=== PATIENT | female | born 1950 | race Native Hawaiian/Other Pacific Islander ===

== ENCOUNTER 2018-03-21 16:23 | Inpatient (IN) | payer MEDICARE, BC ==
[2018-03-21 16:23] VITALS: BMI 40.2
--- NOTE | 2018-03-21 16:58 | C.PDOC ---
History Of Present Illness 67 years old female with PMHx of diabetes, HTN, and CAD is sent to ED by for admission and evaluation of shortness of breath associated with cough and chest tightness that began 2 weeks ago. Patient states she finished all her antibiotics. Denies fever or any other complaints. Time Seen by Provider: 03/21/18 16:43 Chief Complaint (Nursing): Shortness Of Breath History Per: Patient History/Exam Limitations: no limitations Onset/Duration Of Symptoms: Days Current Symptoms Are (Timing): Still Present Quality: Tightness Exacerbating Factor(s): Exertion Current Respiratory Medications: See Home Med List Associated Symptoms: denies: Fever Recent travel outside of the [place]: No Past Medical History Reviewed: Historical Data, Nursing Documentation, Vital Signs Vital Signs: Last Vital Signs Temp 97.8 F 03/21/18 16:33 Pulse 99 H 03/21/18 16:33 Resp 20 03/21/18 16:33 BP 141/86 03/21/18 16:33 Pulse Ox 96 03/21/18 16:33 - Medical History PMH: Arthritis, HTN, Hypercholesterolemia Family History: States: No Known Family Hx - Social History Hx Alcohol Use: No Hx Substance Use: No - Immunization History Hx Tetanus Toxoid Vaccination: No Hx Influenza Vaccination: Yes Hx Pneumococcal Vaccination: No Review Of Systems Except As Marked, All Systems Reviewed And Found Negative. Respiratory: Positive for: Cough, Shortness of Breath Physical Exam - Physical Exam Appears: Non-toxic, No Acute Distress Skin: Normal Color, Warm, Dry, No Rash Head: Atraumatic, Normacephalic Eye(s): bilateral: Normal Inspection, PERRL, EOMI Oral Mucosa: Moist Neck: Normal ROM, Supple Chest: Symmetrical, No Tenderness Cardiovascular: Rhythm Regular (Tachycardic ), No Murmur Respiratory: Normal Breath Sounds, No Rales, No Rhonchi, No Wheezing Gastrointestinal/Abdominal: Bowel Sounds (Active ), Soft, No Tenderness, No Guarding, No Rebound Extremity: Normal ROM Extremity: Bilateral: Atraumatic, Normal Color And Temperature, Normal ROM Pulses: Left Radial: Normal, Right Radial: Normal Neurological/Psych: Oriented x3, Normal Speech Gait: Steady ED Course And Treatment - Laboratory Results Result Diagrams: 03/21/18 17:12 03/21/18 17:12 O2 Sat by Pulse Oximetry: 96 (RA) Pulse Ox Interpretation: Normal - Other Rad CXR X-Ray: Interpreted by Me, Viewed By Me Interpretation: Cardiomegaly. Vascular congestion. No acute infiltrates. Medical Decision Making Medical Decision Making: Plan: * EKG * CXR * Blood work * O2 via nasal cannula EKG: * Normal sinus rhythm at 99 bpm * ST depressions V5-V6 * No ST Elevations 17:51: Spoke with Dr. Hairston which requested to admit to [facility] Spoke with Dr. Gonzalez which accepted patient Currently trying to reach and unable to leave a message on answering [employer]. Disposition Discussed With DrRonn: Edwin Hairston (admit to Dr Holt) Doctor Will See Patient In The: Hospital - Disposition Disposition: HOSPITALIZED Disposition Time: 17:56 Condition: STABLE Forms: [facility] (Qatari) - Clinical Impression Clinical Impression: Acute diastolic heart failure - Scribe Statement The provider has reviewed the documentation as recorded by the Scribe Aleah Fair All medical record entries made by the Scribe were at my direction and personally dictated by me. I have reviewed the chart and agree that the record accurately reflects my personal performance of the history, physical exam, [facility] decision making, and the department course for this patient. I have also personally directed, reviewed, and agree with the discharge instructions and disposition.
[2018-03-21 17:15] LABS: BASO % 0.4 % (0.0-2.0); EOS # 0.1 K/uL (0.0-0.7); EOS % 0.8 % (0.0-4.0); HEMOGLOBIN 13.2 g/dL (11.0-16.0); LYMPH # 1.6 K/uL (1.0-4.3); LYMPH % 21.3 % (20.0-40.0); MEAN CELL VOLUME 88.5 fL (81.0-99.0); MEAN CORPUSCULAR HGB CONC 31.7 g/dL (33.0-37.0); MEAN PLATELET VOLUME 8.2 fL (7.2-11.7); MONO # 0.6 K/uL (0.0-0.8); MONO % 7.7 % (0.0-10.0); NEUT # 5.3 K/uL (1.8-7.0); NEUT % 69.8 % (50.0-75.0); NRBC % 0.1 % (0.0-2.0); RBC 4.7 Mil/uL (3.80-5.20); RED CELL DISTRIBUTION WIDTH 13.9 % (11.5-14.5); WHITE BLOOD COUNT 7.6 K/uL (4.8-10.8)
[2018-03-21 17:29] LABS: INR 1.1; PROTHROMBIN TIME 11.8 SECONDS (9.7-12.2)
[2018-03-21 17:30] LABS: ALB/GLOB RATIO 1.5 (1.0-2.1); ALBUMIN 4.3 g/dL (3.5-5.0); ALT/SGPT 37 U/L (9-52); AST/SGOT 28 U/L (14-36); BLOOD UREA NITROGEN 20 mg/dL (7-17); CALCIUM 8.9 mg/dl (8.6-10.4); GFR NON-AFRICAN AMERICAN > 60
[2018-03-21 17:39] LABS: B-TYPE NATRIURETIC PEPTIDE 3320 pg/mL (0-900)
--- NOTE | 2018-03-21 22:10 | CP.PCM.CON ---
Past Patient History - Infectious Disease Hx of Infectious Diseases: None - Past Social History Smoking Status: Never Smoked - CARDIAC Hx Hypercholesterolemia: Yes Hx Hypertension: Yes - PULMONARY Hx Respiratory Disorders: No - NEUROLOGICAL Hx Neurological Disorder: No - HEENT Other/Comment: WEARS RX GLASSES - RENAL Hx Chronic Kidney Disease: No - ENDOCRINE/METABOLIC Hx Endocrine Disorders: Yes Hx Diabetes Mellitus Type 2: Yes - HEMATOLOGICAL/ONCOLOGICAL Hx Blood Disorders: Yes Other/Comment: GI BLEED - INTEGUMENTARY Hx Dermatological Problems: No - MUSCULOSKELETAL/RHEUMATOLOGICAL Hx Arthritis: Yes - GASTROINTESTINAL Hx Gastrointestinal Disorders: Yes Other/Comment: GI BLEED 12-28-14 - GENITOURINARY/GYNECOLOGICAL Hx Genitourinary Disorders: Yes Other/Comment: Newly diagnosed R breast cancer-SEPTEMBER 2014 - PSYCHIATRIC Hx Substance Use: No - SURGICAL HISTORY Hx Surgeries: Yes Other/Comment: LEFT KNEE ARTHROSCOPY,KELOID TO CHEST SEVERAL SX,BIOPSY RIGHT BREAST,LYMPNODES AND HAD PUNCH BX. - ANESTHESIA Hx Anesthesia: No Hx Anesthesia Reactions: No Meds Allergies/Adverse Reactions: Allergies Allergy/AdvReac Type Severity Reaction Status Date / Time GHAZALA Inhibitors Allergy RASH Verified 03/21/18 16:39 celecoxib [From Celebrex] Allergy RASH Verified 03/21/18 16:38 iodine Allergy RASH Verified 03/21/18 16:39 tape Allergy RASH Uncoded 03/21/18 16:39 - Medications Medications: Current Medications Aspirin (Ecotrin) 81 mg PO DAILY [facility] Enoxaparin Sodium (Lovenox) 40 mg SC DAILY [facility] Furosemide (Lasix) 20 mg IVP BID [facility] Gabapentin (Neurontin) 300 mg PO DAILY [facility] Losartan Potassium (Cozaar) 100 mg PO DAILY [facility] Metformin HCl (Glucophage) 850 mg PO BID [facility] Metoprolol Tartrate (Lopressor) 12.5 mg PO BID [facility] Pneumococcal Polyvalent Vaccine (Pneumovax 23 Vaccine) 0.5 ml IM .ONCE ONE Stop: 03/24/18 10:01 Rosuvastatin Calcium (Crestor) 10 mg PO HS [facility] Last Admin: 03/21/18 21:35 Dose: 10 mg Results - Vital Signs Recent Vital Signs: Last Vital Signs Temp 97.6 F 03/21/18 21:17 Pulse 96 H 03/21/18 21:17 Resp 20 03/21/18 21:17 BP 156/83 H 03/21/18 21:17 Pulse Ox 96 03/21/18 21:17 - Labs Result Diagrams: 03/21/18 17:12 03/21/18 17:12 Labs: Laboratory Results - last 24 hr 03/21/18 03/21/18 03/21/18 17:12 17:12 17:12 WBC 7.6 RBC 4.70 Hgb 13.2 Hct 41.6 MCV 88.5 MCH 28.0 MCHC 31.7 L RDW 13.9 Plt Count 246 MPV 8.2 Neut % (Auto) 69.8 Lymph % (Auto) 21.3 [place] % (Auto) 7.7 Eos % (Auto) 0.8 Baso % (Auto) 0.4 Neut # (Auto) 5.3 Lymph # (Auto) 1.6 [place] # (Auto) 0.6 Eos # (Auto) 0.1 Baso # (Auto) 0.0 PT 11.8 INR 1.1 APTT 27 Sodium 137 Potassium 3.7 Chloride 102 Carbon Dioxide 25 Anion Gap 14 BUN 20 H Creatinine 0.6 L Est GFR ( Amer) > 60 Est GFR (Non-Af Amer) > 60 Random Glucose 229 H Calcium 8.9 Total Bilirubin 1.1 AST 28 ALT 37 Alkaline Phosphatase 56 Troponin I < 0.0120 NT-Pro-B Natriuret Pep 3320 H Total Protein 7.2 Albumin 4.3 Globulin 2.9 Albumin/Globulin Ratio 1.5
[2018-03-22 00:35] LABS: CK-MB 0.88 ng/mL (0.0-3.38)
[2018-03-22 07:55] LABS: BLOOD UREA NITROGEN 19 mg/dL (7-17); CALCIUM 9.1 mg/dl (8.6-10.4); GFR NON-AFRICAN AMERICAN > 60; HDL CHOLESTEROL 48 mg/dL (30-70)
[2018-03-22 08:05] LABS: CK-MB 0.75 ng/mL (0.0-3.38)
[2018-03-22 08:12] LABS: LDL CHOLESTEROL 78 mg/dL (0-129)
--- NOTE | 2018-03-22 10:35 | RAD ---
Date of service: 03/21/2018 HISTORY: SOB COMPARISON: None available. FINDINGS: LUNGS: No active pulmonary disease. PLEURA: No significant pleural effusion identified, no pneumothorax apparent. CARDIOVASCULAR: No aortic atherosclerotic calcification present. Prominent cardiac silhouette identified. Borderline pulmonary vascular congestion. OSSEOUS STRUCTURES: No significant abnormalities. VISUALIZED UPPER ABDOMEN: Normal. OTHER FINDINGS: None. IMPRESSION: Prominent cardiac silhouette. Borderline pulmonary vascular congestion. No acute infiltrates bilaterally.
[2018-03-22] MEDS: Enoxaparin 40 mg Syringe SC SCH (11:44)
[2018-03-22] MEDS ORDERED: Glucagon Recombinant 1 mg Inj IM PRN (12:58)
[2018-03-22] MEDS ORDERED: Dextrose 50% SYRINGE Inj (50 ml) IV PRN (12:58)
--- NOTE | 2018-03-22 14:13 | CP.PCM.PN ---
<Kyleigh Turk - Last Filed: 03/22/18 17:17> Subjective - Date & Time of Evaluation Date of Evaluation: 03/22/18 Time of Evaluation: 08:00 - Subjective Subjective: Cardiology Progress Note for Dr. Hairston: Patient was seen and examined at bedside in the AM. Patient states she has been feeling short of breath for the past 2 weeks. She states walking from the parking lot to the hospital was a lot for her. She denies shortness of breath at rest. She sleeps with 2 pillows. She denies chest pain, palpitations, nausea, vomiting, diarrhea or constipation. Objective - Vital Signs/Intake and Output Vital Signs (last 24 hours): Temp Pulse Resp BP Pulse Ox 97.9 F 102 H 20 150/94 H 96 03/22/18 07:00 03/22/18 12:00 03/22/18 07:00 03/22/18 11:44 03/22/18 07:00 - Medications Medications: Current Medications Aspirin (Ecotrin) 81 mg PO DAILY [facility] 234 BEDS AT THE [facility] Last Admin: 03/22/18 11:44 Dose: 81 mg Dextrose (Dextrose 50% Inj) 0 ml IV STAT PRN; Protocol PRN Reason: Hypoglycemia Protocol Dextrose (Glutose 15) 0 gm PO ONCE PRN; Protocol PRN Reason: Hypoglycemia Protocol Enoxaparin Sodium (Lovenox) 40 mg SC DAILY [facility]S [facility]CLUDE 234 BEDS AT THE [facility] Last Admin: 03/22/18 11:44 Dose: 40 mg Furosemide (Lasix) 20 mg IVP BID [facility]S INCLUDE 234 BEDS AT THE [facility] Last Admin: 03/22/18 11:44 Dose: 20 mg Gabapentin (Neurontin) 300 mg PO DAILY [facility]CLUDE 234 BEDS AT THE [facility] Last Admin: 03/22/18 11:44 Dose: 300 mg Glucagon (Glucagen Diagnostic Kit) 0 mg IM STAT PRN; Protocol PRN Reason: Hypoglycemia Protocol Dextrose (Dextrose 5% In Water 1000 Ml) 1,000 mls @ 0 mls/hr IV .Q0M PRN; P rotocol PRN Reason: Hypoglycemia Protocol Influenza Virus Vaccine (Flucelvax Quad [id number] Syr) 60 mcg IM .ONCE ONE Stop: 03/23/18 10:01 Insulin Aspart (Novolog) 0 unit SC ACHS COUNTS INCLUDE 234 BEDS AT THE [facility]; Protocol Losartan Potassium (Cozaar) 100 mg PO DAILY [facility]S INCLUDE 234 BEDS AT THE [facility] Last Admin: 03/22/18 11:44 Dose: 100 mg Metformin HCl (Glucophage) 850 mg PO BID COUNTS INCLUDE 234 BEDS AT THE [facility] Last Admin: 03/22/18 11:45 Dose: 850 mg Metoprolol Tartrate (Lopressor) 12.5 mg PO BID COUNTS INCLUDE 234 BEDS AT THE [facility] Last Admin: 03/22/18 11:44 Dose: 12.5 mg Pneumococcal Polyvalent Vaccine (Pneumovax 23 Vaccine) 0.5 ml IM .ONCE ONE Stop: 03/24/18 10:01 Rosuvastatin Calcium (Crestor) 10 mg PO [facility] Last Admin: 03/21/18 21:35 Dose: 10 mg - Labs Labs: 03/21/18 17:12 03/22/18 07:27 PT 11.8 SECONDS (9.7-12.2) 03/21/18 17:12 INR 1.1 03/21/18 17:12 APTT 27 SECONDS (21-34) 03/21/18 17:12 - Constitutional Appears: No Acute Distress - Head Exam Head Exam: ATRAUMATIC, NORMAL INSPECTION - Eye Exam Eye Exam: EOMI, Normal appearance - ENT Exam ENT Exam: Mucous Membranes Moist - Respiratory Exam Respiratory Exam: Clear to Ausculation Bilateral, NORMAL BREATHING PATTERN - Cardiovascular Exam Cardiovascular Exam: REGULAR RHYTHM, +S1, +S2 - GI/Abdominal Exam GI & Abdominal Exam: Soft, Normal Bowel Sounds. absent: Tenderness - Extremities Exam Extremities Exam: Pedal Edema - Neurological Exam Neurological Exam: Alert, Awake, Oriented x3 - Psychiatric Exam Psychiatric exam: Normal Affect - Skin Skin Exam: Normal Color Assessment and Plan - Assessment and Plan (Free Text) Assessment: 67 year old female with past medical history of Diabetes, HTN and breast cancer remission presented to the ER for shortness of breath. Shortness of Breath secondary to Acute on Chronic CHF - Chest Xray: Prominent cardiac silhouette. Borderline pulmonary vascular congestion. No acute infiltrates bilaterally. - proBNP 3,320 - Trop Negative x3 - Total Cholesterol 118; LDL 78; HDL 48; TSH 4.11 - f/u ECHO: Reviewed by Dr. Hairston - EF 25% - Cardiac Cath 03/22/[address] Yovanny Turk PGY-2 <Edwin Hairston - Last Filed: 03/22/18 17:46> Objective - Vital Signs/Intake and Output Vital Signs (last 24 hours): Temp Pulse Resp BP Pulse Ox 98.1 F 92 H 20 147/89 96 03/22/18 16:00 03/22/18 16:00 03/22/18 16:00 03/22/18 16:00 03/22/18 16:00 - Medications Medications: Current Medications Aspirin (Ecotrin) 81 mg PO DAILY [facility]CLUDE 234 BEDS AT THE [facility] Last Admin: 03/22/18 11:44 Dose: 81 mg Dextrose (Dextrose 50% Inj) 0 ml IV STAT PRN; Protocol PRN Reason: Hypoglycemia Protocol Dextrose (Glutose 15) 0 gm PO ONCE PRN; Protocol PRN Reason: Hypoglycemia Protocol Enoxaparin Sodium (Lovenox) 40 mg SC DAILY [facility]S INCLUDE 234 BEDS AT THE [facility] Last Admin: 03/22/18 11:44 Dose: 40 mg Furosemide (Lasix) 20 mg IVP BID [facility]S INCLUDE 234 BEDS AT THE [facility] Last Admin: 03/22/18 17:11 Dose: Not Given Gabapentin (Neurontin) 300 mg PO DAILY [facility] INCLUDE 234 BEDS AT THE [facility] Last Admin: 03/22/18 11:44 Dose: 300 mg Glucagon (Glucagen Diagnostic Kit) 0 mg IM STAT PRN; Protocol PRN Reason: Hypoglycemia Protocol Dextrose (Dextrose 5% In Water 1000 Ml) 1,000 mls @ 0 mls/hr IV .Q0M PRN; Protocol PRN Reason: Hypoglycemia Protocol Influenza Virus Vaccine (Flucelvax Quad [id number] Syr) 60 mcg IM .ONCE ONE Stop: 03/23/18 10:01 Insulin Aspart (Novolog) 0 unit SC [facility]; Protocol Last Admin: 03/22/18 17:12 Dose: Not Given Losartan Potassium (Cozaar) 100 mg PO DAILY [facility]CLUDE 234 BEDS AT THE [facility] Last Admin: 03/22/18 11:44 Dose: 100 mg Metformin HCl (Glucophage) 850 mg PO BID [facility]S INCLUDE 234 BEDS AT THE [facility] Last Admin: 03/22/18 17:11 Dose: Not Given Metoprolol Tartrate (Lopressor) 12.5 mg PO BID [facility]S INCLUDE 234 BEDS AT THE [facility] Last Admin: 03/22/18 17:12 Dose: Not Given Pneumococcal Polyvalent Vaccine (Pneumovax 23 Vaccine) 0.5 ml IM .ONCE ONE Stop: 03/24/18 10:01 Potassium Chloride (K-Dur 20 Meq Er Tab) 40 meq PO DAILY [facility] INCLUDE 234 BEDS AT THE [facility] Last Admin: 03/22/18 16:14 Dose: 40 meq Rosuvastatin Calcium (Crestor) 10 mg PO HS [facility]S INCLUDE 234 BEDS AT THE [facility] Last Admin: 03/21/18 21:35 Dose: 10 mg - Labs Labs: 03/21/18 17:12 03/22/18 07:27 PT 11.8 SECONDS (9.7-12.2) 03/21/18 17:12 INR 1.1 03/21/18 17:12 APTT 27 SECONDS (21-34) 03/21/18 17:12 Assessment and Plan - Assessment and Plan (Free Text) Assessment: Patient s/p cath L Main: Patent LAD: Mid 95% stenosis L Cx: Patent High OM: Proximal 90% RCA: Dominant and patent EF: 20% Ischemic CMP Life Vest Impella assisted High risk PCI in open heart facility CHF management ASA 81 and Plavix 75, Statins
--- NOTE | 2018-03-22 14:52 | CP.PCM.CON ---
History of Present Illness - History of Present Illness History of Present Illness: This is a 67 year old woman with a past medical history of diabetes, HTN and CAD who is complaining of shortness of breath. She complains that it started about 2 weeks ago. She states the shortness of breath worsens with exertion and improves with rest. There is a non productive cough associated with some chest tightness whenever she becomes short of breath. She denies any recent travel or sick contacts. She denies any fevers, chills, wheezing, chest pain, n/v, dysuria. Past Medical Hx: Arthritis, HTN, DM, CAD, Breast Cancer Allergies: Iodine, GHAZALA inhibitors, sulfa Medications: Aspirin 81 mg, Lovenox 40mg daily, Neurontin 300 mg PO daily, Losartan 100 mg PO daily , Metformin 850 mg PO BID,Metoprolol, Surgical Hx: Left knee arthroscopy, right breast biopsy Family Hx: Mother at age 73 DM Social Hx: Denies tobacco, alcohol or drug use ROS: 10 point review of systems negative except otherwise stated in HPI Exam: General: AAOx3, no acute distress, HEENT: Atrauamatic, normocephalic, Heart: RRR, no murmurs, rubs or gallops Lungs:CTA b/l, no wheezing, rales or rhonchi Abdomen: soft, non distended, nontender Psych: normal affect, normal mood Extremities: bilateral lower extremity edema A&P 1. Shortness of Breath - CXR 03/21/18: prominent cardiac silhouette. borderline pulmonary vascular congestion, no acute infiltrates bilaterally - Continue Lasixs, fluid restrictions - Order Echo -Patient is afebrile at 97.9 F with a WBC count of 7.6 - O2 sat is 96% on room air - continue to monitor patients vitals Past Patient History - Infectious Disease Hx of Infectious Diseases: None - Past Social History Smoking Status: Never Smoked - CARDIAC Hx Hypercholesterolemia: Yes Hx Hypertension: Yes - PULMONARY Hx Respiratory Disorders: No - NEUROLOGICAL Hx Neurological Disorder: No - HEENT Other/Comment: WEARS RX GLASSES - RENAL Hx Chronic Kidney Disease: No - ENDOCRINE/METABOLIC Hx Endocrine Disorders: Yes Hx Diabetes Mellitus Type 2: Yes - HEMATOLOGICAL/ONCOLOGICAL Hx Blood Disorders: Yes Other/Comment: GI BLEED - INTEGUMENTARY Hx Dermatological Problems: No - MUSCULOSKELETAL/RHEUMATOLOGICAL Hx Arthritis: Yes - GASTROINTESTINAL Hx Gastrointestinal Disorders: Yes Other/Comment: GI BLEED 15 - GENITOURINARY/GYNECOLOGICAL Hx Genitourinary Disorders: Yes Other/Comment: Newly diagnosed R breast cancer-SEPTEMBER 2014 - PSYCHIATRIC Hx Substance Use: No - SURGICAL HISTORY Hx Surgeries: Yes Other/Comment: LEFT KNEE ARTHROSCOPY,KELOID TO CHEST SEVERAL SX,BIOPSY RIGHT BREAST,LYMPNODES AND HAD PUNCH BX. - ANESTHESIA Hx Anesthesia: No Hx Anesthesia Reactions: No Meds Allergies/Adverse Reactions: Allergies Allergy/AdvReac Type Severity Reaction Status Date / Time GHAZALA Inhibitors Allergy RASH Verified 03/21/18 16:39 celecoxib [From Celebrex] Allergy RASH Verified 03/21/18 16:38 iodine Allergy RASH Verified 03/21/18 16:39 tape Allergy RASH Uncoded 03/21/18 16:39 - Medications Medications: Current Medications Aspirin (Ecotrin) 81 mg PO DAILY [facility] Last Admin: 03/22/18 11:44 Dose: 81 mg Dextrose (Dextrose 50% Inj) 0 ml IV STAT PRN; Protocol PRN Reason: Hypoglycemia Protocol Dextrose (Glutose 15) 0 gm PO ONCE PRN; Protocol PRN Reason: Hypoglycemia Protocol Enoxaparin Sodium (Lovenox) 40 mg SC DAILY [facility] Last Admin: 03/22/18 11:44 Dose: 40 mg Furosemide (Lasix) 20 mg IVP BID [facility] Last Admin: 03/22/18 11:44 Dose: 20 mg Gabapentin (Neurontin) 300 mg PO DAILY [facility] Last Admin: 03/22/18 11:44 Dose: 300 mg Glucagon (Glucagen Diagnostic Kit) 0 mg IM STAT PRN; Protocol PRN Reason: Hypoglycemia Protocol Dextrose (Dextrose 5% In Water 1000 Ml) 1,000 mls @ 0 mls/hr IV .Q0M PRN; Protocol PRN Reason: Hypoglycemia Protocol Influenza Virus Vaccine (Flucelvax Quad [id number] Syr) 60 mcg IM .ONCE ONE Stop: 03/23/18 10:01 Insulin Aspart (Novolog) 0 unit SC [facility]; Protocol Losartan Potassium (Cozaar) 100 mg PO DAILY [facility] Last Admin: 03/22/18 11:44 Dose: 100 mg Metformin HCl (Glucophage) 850 mg PO BID [facility] Last Admin: 03/22/18 11:45 Dose: 850 mg Metoprolol Tartrate (Lopressor) 12.5 mg PO BID [facility] Last Admin: 03/22/18 11:44 Dose: 12.5 mg Pneumococcal Polyvalent Vaccine (Pneumovax 23 Vaccine) 0.5 ml IM .ONCE ONE Stop: 03/24/18 10:01 Rosuvastatin Calcium (Crestor) 10 mg PO HS [facility] Last Admin: 03/21/18 21:35 Dose: 10 mg Results - Vital Signs Recent Vital Signs: Last Vital Signs Temp 97.9 F 03/22/18 07:00 Pulse 102 H 03/22/18 12:00 Resp 20 03/22/18 07:00 BP 150/94 H 03/22/18 11:44 Pulse Ox 96 03/22/18 07:00 - Labs Result Diagrams: 03/21/18 17:12 03/22/18 07:27 Labs: Laboratory Results - last 24 hr 03/21/18 03/21/18 03/21/18 17:12 17:12 17:12 WBC 7.6 RBC 4.70 Hgb 13.2 Hct 41.6 MCV 88.5 MCH 28.0 MCHC 31.7 L RDW 13.9 Plt Count 246 MPV 8.2 Neut % (Auto) 69.8 Lymph % (Auto) 21.3 [place] % (Auto) 7.7 Eos % (Auto) 0.8 Baso % (Auto) 0.4 Neut # (Auto) 5.3 Lymph # (Auto) 1.6 [place] # (Auto) 0.6 Eos # (Auto) 0.1 Baso # (Auto) 0.0 PT 11.8 INR 1.1 APTT 27 Sodium 137 Potassium 3.7 Chloride 102 Carbon Dioxide 25 Anion Gap 14 BUN 20 H Creatinine 0.6 L Est GFR ( Amer) > 60 Est GFR (Non-Af Amer) > 60 POC Glucose (mg/dL) Random Glucose 229 H Calcium 8.9 Total Bilirubin 1.1 AST 28 ALT 37 Alkaline Phosphatase 56 Total Creatine Kinase CK-MB (Mass) Troponin I < 0.0120 NT-Pro-B Natriuret Pep 3320 H Total Protein 7.2 Albumin 4.3 Globulin 2.9 Albumin/Globulin Ratio 1.5 Triglycerides Cholesterol LDL Cholesterol Direct HDL Cholesterol TSH 3rd Generation 03/21/18 03/21/18 03/22/18 21:51 23:32 06:17 WBC RBC Hgb Hct MCV MCH MCHC RDW Plt Count MPV Neut % (Auto) Lymph % (Auto) [place] % (Auto) Eos % (Auto) Baso % (Auto) Neut # (Auto) Lymph # (Auto) [place] # (Auto) Eos # (Auto) Baso # (Auto) PT INR APTT Sodium Potassium Chloride Carbon Dioxide Anion Gap BUN Creatinine Est GFR ( Amer) Est GFR (Non-Af Amer) POC Glucose (mg/dL) 198 H 184 H Random Glucose Calcium Total Bilirubin AST ALT Alkaline Phosphatase Total Creatine Kinase 47 CK-MB (Mass) 0.88 Troponin I < 0.0120 NT-Pro-B Natriuret Pep Total Protein Albumin Globulin Albumin/Globulin Ratio Triglycerides Cholesterol LDL Cholesterol Direct HDL Cholesterol TSH 3rd Generation 03/22/18 03/22/18 07:27 11:28 WBC RBC Hgb Hct MCV MCH MCHC RDW Plt Count MPV Neut % (Auto) Lymph % (Auto) [place] % (Auto) Eos % (Auto) Baso % (Auto) Neut # (Auto) Lymph # (Auto) [place] # (Auto) Eos # (Auto) Baso # (Auto) PT INR APTT Sodium 137 Potassium 3.4 L Chloride 99 Carbon Dioxide 29 Anion Gap 12 BUN 19 H Creatinine 0.7 Est GFR ( Amer) > 60 Est GFR (Non-Af Amer) > 60 POC Glucose (mg/dL) 282 H Random Glucose 192 H Calcium 9.1 Total Bilirubin AST ALT Alkaline Phosphatase Total Creatine Kinase 45 CK-MB (Mass) 0.75 Troponin I < 0.0120 NT-Pro-B Natriuret Pep Total Protein Albumin Globulin Albumin/Globulin Ratio Triglycerides 118 Cholesterol 137 LDL Cholesterol Direct 78 HDL Cholesterol 48 TSH 3rd Generation 4.11
[2018-03-22] MEDS ORDERED: Potassium Chloride 20 mEq ER Tab PO SCH (16:15)
[2018-03-22] MEDS ORDERED: Iodixanol 320 MG/ML 200 ML BOTTLE IV ONE (16:46)
[2018-03-22] MEDS ORDERED: Midazolam 2 MG/2 ML VIAL ONE (16:58)
[2018-03-22] MEDS: (Novolog) Insulin Aspart, Recombinant 100 u/ml 10 ml vial SC SCH ×2 (17:12→21:16)
[2018-03-22] MEDS ORDERED: Labetalol 5mg/ml (4ml) ONE (17:28)
--- NOTE | 2018-03-22 19:56 | CARD ---
APPROVED REPORT Date of service: 03/22/2018 EXAM: Two-dimensional and M-mode echocardiogram with Doppler and color Doppler. Other Information Quality : Good[employer] : INDICATION Dyspnea 2D DIMENSIONS IVSd0.7 (0.7-1.1cm)LVDd5.9 (3.9-5.9cm) PWd0.8 (0.7-1.1cm)LA Roirck47 (18-58mL) LVDs5.5 (2.5-4.0cm)FS (%) 8.2 % LVEF (%)33.0 (>50%)LVEF (Frazier's)35.09 % M-Mode DIMENSIONS Left Atrium (MM)4.06 (2.5-4.0cm)IVSd1.07 (0.7-1.1cm) Aortic Root3.37 (2.2-3.7cm)LVDd5.76 (4.0-5.6cm) Aortic Cusp Exc.1.96 (1.5-2.0cm)PWd1.13 (0.7-1.1cm) FS (%) 16 %LVDs4.85 (2.0-3.8cm) LVEF (%)33 (>50%) Mitral Valve MV E Rzfyesmp985.0cm/sMV A Bovrrykj39.0cm/sE/A ratio1.2 TDI Lateral E' Peak V5.25cm/sMedial E' Peak V4.29cm/sE/Lateral E'20.8 E/Medial E'25.4 Tricuspid Valve TR Peak [id number]/sTR Peak Gr.[id number] LEFT VENTRICLE The Left Ventricle is borderline dilated. There is normal left ventricular wall thickness. Left ventricle systolic function is severely impaired. The Ejection Fraction is 25-30%. There is global hypokinesis of the left ventricle. Transmitral Doppler flow pattern is Grade II-pseudonormal filling dynamics. There is no ventricular septal defect visualized. RIGHT VENTRICLE The right ventricle is normal size. The right ventricular systolic function is normal. ATRIA The left atrium is mildly dilated. The right atrium size is normal. AORTIC VALVE The aortic valve is mildly sclerotic. The aortic valve is tri-cuspid. There is trace aortic regurgitation. There is no aortic valvular stenosis. MITRAL VALVE Mitral annular calcification is mild to moderate. There is no evidence of mitral valve prolapse. Mitral regurgitation is mild to moderate. TRICUSPID VALVE The tricuspid valve is normal in structure. There is trace tricuspid regurgitation. Right ventricular systolic pressure is estimated at 30-40 mmHg. There is mild pulmonary hypertension. PULMONIC VALVE The pulmonary valve is normal in structure. There is trace pulmonic valvular regurgitation. GREAT VESSELS The aortic root is normal in size. The ascending aorta is Mildly dilated. 3.8 cm The IVC is dilated. PERICARDIAL EFFUSION There is no pericardial effusion. <Conclusion> The Left Ventricle is borderline dilated. Left ventricle systolic function is severely impaired. The Ejection Fraction is 25-30%. Transmitral Doppler flow pattern is Grade II-pseudonormal filling dynamics. There is trace aortic regurgitation. Mitral regurgitation is mild to moderate. There is mild pulmonary hypertension.
--- NOTE | 2018-03-22 20:54 | CARD ---
APPROVED REPORT Date of service: 03/21/2018 EKG Measurement Heart [id number] <Conclusion> Normal sinus rhythm Possible Left atrial enlargement Nonspecific ST and T wave abnormality Abnormal ECG
--- NOTE | 2018-03-22 21:28 | CP.PCM.HP ---
Present on Admission - Present on Admission Any Indicators Present on Admission: No Past Patient History - Infectious Disease Hx of Infectious Diseases: None - Past Social History Smoking Status: Never Smoked - CARDIAC Hx Hypercholesterolemia: Yes Hx Hypertension: Yes - PULMONARY Hx Respiratory Disorders: No - NEUROLOGICAL Hx Neurological Disorder: No - HEENT Other/Comment: WEARS RX GLASSES - RENAL Hx Chronic Kidney Disease: No - ENDOCRINE/METABOLIC Hx Endocrine Disorders: Yes Hx Diabetes Mellitus Type 2: Yes - HEMATOLOGICAL/ONCOLOGICAL Hx Blood Disorders: Yes Other/Comment: GI BLEED - INTEGUMENTARY Hx Dermatological Problems: No - MUSCULOSKELETAL/RHEUMATOLOGICAL Hx Arthritis: Yes - GASTROINTESTINAL Hx Gastrointestinal Disorders: Yes Other/Comment: GI BLEED 12-28-14 - GENITOURINARY/GYNECOLOGICAL Hx Genitourinary Disorders: Yes Other/Comment: Newly diagnosed R breast cancer-SEPTEMBER 2014 - PSYCHIATRIC Hx Substance Use: No - SURGICAL HISTORY Hx Surgeries: Yes Other/Comment: LEFT KNEE ARTHROSCOPY,KELOID TO CHEST SEVERAL SX,BIOPSY RIGHT BREAST,LYMPNODES AND HAD PUNCH BX. - ANESTHESIA Hx Anesthesia: No Hx Anesthesia Reactions: No Meds Allergies/Adverse Reactions: Allergies Allergy/AdvReac Type Severity Reaction Status Date / Time GHAZALA Inhibitors Allergy RASH Verified 03/21/18 16:39 celecoxib [From Celebrex] Allergy RASH Verified 03/21/18 16:38 iodine Allergy RASH Verified 03/21/18 16:39 tape Allergy RASH Uncoded 03/21/18 16:39 Results - Vital Signs Recent Vital Signs: Last Vital Signs Temp 97.7 F 03/22/18 19:28 Pulse 89 03/22/18 19:28 Resp 18 03/22/18 19:28 BP 133/83 03/22/18 19:28 Pulse Ox 95 03/22/18 19:28 - Labs Result Diagrams: 03/21/18 17:12 03/22/18 07:27 Labs: Laboratory Results - last 24 hr 03/21/18 03/21/18 03/22/18 21:51 23:32 06:17 Sodium Potassium Chloride Carbon Dioxide Anion Gap BUN Creatinine Est GFR ( Amer) Est GFR (Non-Af Amer) POC Glucose (mg/dL) 198 H 184 H Random Glucose Calcium Total Creatine Kinase 47 CK-MB (Mass) 0.88 Troponin I < 0.0120 Triglycerides Cholesterol LDL Cholesterol Direct HDL Cholesterol TSH 3rd Generation 03/22/18 03/22/1819 07:27 11:28 18:50 Sodium 137 Potassium 3.4 L Chloride 99 Carbon Dioxide 29 Anion Gap 12 BUN 19 H Creatinine 0.7 Est GFR ( Amer) > 60 Est GFR (Non-Af Amer) > 60 POC Glucose (mg/dL) 282 H 267 H Random Glucose 192 H Calcium 9.1 Total Creatine Kinase 45 CK-MB (Mass) 0.75 Troponin I < 0.0120 Triglycerides 118 Cholesterol 137 LDL Cholesterol Direct 78 HDL Cholesterol 48 TSH 3rd Generation 4.11 03/22/18 21:15 Sodium Potassium Chloride Carbon Dioxide Anion Gap BUN Creatinine Est GFR ( Amer) Est GFR (Non-Af Amer) POC Glucose (mg/dL) 263 H Random Glucose Calcium Total Creatine Kinase CK-MB (Mass) Troponin I Triglycerides Cholesterol LDL Cholesterol Direct HDL Cholesterol TSH 3rd Generation
--- NOTE | 2018-03-23 01:11 | HP ---
CHIEF COMPLIANT: Dyspnea x2 weeks. HISTORY OF PRESENT ILLNESS: This is 67-year-old [place] female with history of diabetes, hypertension, hyperlipidemia, coronary artery disease. She had developed shortness of breath about 2 weeks ago. According to her, shortness of breath is exertion and is improved with that. She had some nonproductive cough. According to her, in the very beginning she had white sputum production, but now it is nonproductive. She gets short of breath with exertion, beyond 15 to 20 steps. The patient denies any history of hemoptysis. She denies any history of earache, nausea, vomiting, diarrhea. She has dry cough. She denies any sputum. She denies any abdominal pain. She had dyspepsia. She denies any nausea, vomiting, or diarrhea. She denies any polyuria, polydipsia, polyphagia. She denies any hematuria or pyuria. She denies any history of trauma, fall, loss of consciousness. There is no history of seizure like activity. The patient denies any vomiting. She denies drinking alcohol. She denies smoking. She denies any other acute symptomatology. PAST MEDICAL HISTORY: Diabetes, hypertension, hyperlipidemia, osteoarthritis, breast cancer, and coronary artery disease. She has breast cancer and she is in remission. She is being followed up by Dr. Preston in [place]. ALLERGIES: THE PATIENT IS ALLERGIC TO IODINE, GHAZALA INHIBITOR, AND SULFA. CURRENT MEDICATIONS: She is on aspirin, gabapentin 300 mg daily, Cozaar 100 mg daily, metformin 850 mg b.i.d. and metoprolol. SURGICAL HISTORY: She had left knee arthroplasty and right breast biopsy. FAMILY HISTORY: Mother at the age of 73 and diabetes. SOCIAL HISTORY: She denies smoking, drinking, or drugs. REVIEW OF SYSTEMS: Negative for any involuntary movements of arms and legs. The patient denies any diarrhea. She denies any skin rash, itchy eyes, itchy nose, or sneezing. PHYSICAL EXAMINATION: GENERAL: An elderly female, moderately obese. VITAL SIGNS: Blood pressure 133/83, pulse 89, respiratory rate 18, and temperature 97.7. SKIN: No rashes. No bruises. No purpura. No petechiae. No ecchymosis. HEENT: Atraumatic and normocephalic. Negative pallor. Negative icterus. Extraocular movements are intact. NECK: Supple. No JVD. No lymph node. No thyromegaly. No carotid bruits. CHEST WALL: Bilateral symmetrical expansion. No tenderness. No deformity. LUNGS: Bilaterally clear. No rales. No rhonchi. CARDIOVASCULAR SYSTEM: S1 and S2, plus S3 positive. 2/6 ejection systolic murmur at the apex. ABDOMEN: Soft and nontender. Bowel sounds are positive. RECTAL: Negative blood. EXTREMITIES: No clubbing, cyanosis, or edema. CENTRAL NERVOUS SYSTEM: Awake, alert, and oriented x3. Cranial nerves II through XII are normal. Power 5/5 x4. Plantars are downgoing. ASSESSMENT: 1. Dyspnea, etiology is it could be an atypical pneumonia versus coronary artery disease versus congestive heart failure. Her symptoms are subtle and it is unlikely to be pulmonary thromboembolic disease. 2. History of coronary artery disease, rule out progression. 3. Hypertension. 4. Type 2 diabetes. 5. History of breast cancer, status post chemoradiation. PLAN: Admit. Detailed orders are written. Seen and examined. I discussed the case with Dr. Hairston, who did cardiac catheterization and the patient's cardiac catheterization showed two-vessel disease with LV ejection fraction of 20% and she is not a candidate for CABG and she will need angioplasty, and she was transferred to [facility] for transfer. The patient will be followed up closely. Fantasma Holt MD
--- NOTE | 2018-03-23 01:57 | CARDCATH ---
PROCEDURE DATE: 03/22/2018 PROCEDURES: 1. Left heart catheterization. 2. Coronary angiogram. CLINICAL INDICATIONS: 1. Dyspnea. 2. Acute systolic congestive heart failure. 3. Coronary artery disease. 4. Hypertension. 5. Hyperlipidemia. 6. Obesity. REFERRING PHYSICIAN: Vikas Gill MD PERFORMING PHYSICIAN: Edwin Hairston MD DESCRIPTION OF PROCEDURE: After informed consent, the patient was prepped and draped in the usual sterile fashion. A 2% lidocaine was given in the right groin for local anesthesia. Using micropuncture technique, 6-Maori sheath was introduced into right common femoral artery. A JL4 6-Maori diagnostic catheter was engaged into left main coronary artery. Contrast injected, and left coronary angiogram was done. Then, the catheter was exchanged to JR4 6-Maori diagnostic catheter. The catheter was inserted into left ventricle across the aortic valve. LVEDP measured. Contrast injected, and LV angiogram was done. Then, the catheter was pulled back across the aortic valve. Gradient across the aortic valve was measured. Then, the same catheter engaged into the right coronary artery. Contrast injected, and right coronary angiogram was done. The patient tolerated the procedure well. Postprocedure, Mynx closure device deployed with excellent hemostasis. Radiological supervision and radiological interpretation of the coronary imaging was done. FINDINGS: 1. Left main coronary artery is patent. 2. LAD has mid 95% concentric stenosis. Diagonal branches are patent. 3. Left circumflex coronary artery is patent. 4. High obtuse marginal one branch has 95% proximal stenosis. 5. Right coronary artery is dominant and patent. 6. Dilated ischemic left ventricle. Estimated ejection fraction is 20%. EDP is 36. No gradient across the aortic valve. IMPRESSION: 1. Severe two-vessel coronary artery disease. 2. Dilated ischemic cardiomyopathy. Ejection fraction is 20%. RECOMMENDATIONS: The patient is not an ideal candidate for open heart surgery as the patient had breast CA and chemotherapy in the past. I recommend high risk coronary intervention with Impella device assist. Edwin Hairston MD
[2018-03-23 02:45] VITALS: RESP 20
[2018-03-23 07:54] LABS: HEMOGLOBIN 12.4 g/dL (11.0-16.0); MEAN CELL VOLUME 87.9 fL (81.0-99.0); MEAN CORPUSCULAR HEMOGLOBIN 29.2 pg (27.0-31.0); MEAN CORPUSCULAR HGB CONC 33.2 g/dL (33.0-37.0); MEAN PLATELET VOLUME 9.1 fL (7.2-11.7); RBC 4.27 Mil/uL (3.80-5.20); RED CELL DISTRIBUTION WIDTH 14.2 % (11.5-14.5); WHITE BLOOD COUNT 8.3 K/uL (4.8-10.8)
[2018-03-23] MEDS: (Novolog) Insulin Aspart, Recombinant 100 u/ml 10 ml vial SC SCH ×4 (08:06→21:29)
[2018-03-23 08:07] LABS: BLOOD UREA NITROGEN 24 mg/dL (7-17); GFR NON-AFRICAN AMERICAN > 60
[2018-03-23] MEDS ORDERED: Potassium Chloride 20 mEq ER Tab PO SCH (09:02)
--- NOTE | 2018-03-23 09:40 | CP.PCM.PN ---
<Kyleigh Turk - Last Filed: 03/23/18 18:57> Subjective - Date & Time of Evaluation Date of Evaluation: 03/23/18 Time of Evaluation: 08:00 - Subjective Subjective: Cardiology Progress Note for Dr. Hairston: Patient was seen and examined at bedside in the AM. Patient states she feels well today especially now that her cath procedure has been completed. She denies chest pain, palpitations, shortness of breath at rest, nausea, vomiting, diarrhea or constipation. Objective - Vital Signs/Intake and Output Vital Signs (last 24 hours): Temp Pulse Resp BP Pulse Ox 97.9 F 94 H 20 128/75 98 03/23/18 07:00 03/23/18 08:00 03/23/18 07:00 03/23/18 07:00 03/23/18 07:00 - Medications Medications: Current Medications Aspirin (Ecotrin) 81 mg PO DAILY [facility] Last Admin: 03/22/18 11:44 Dose: 81 mg Clopidogrel Bisulfate (Plavix) 75 mg PO DAILY [facility] Dextrose (Dextrose 50% Inj) 0 ml IV STAT PRN; Protocol PRN Reason: Hypoglycemia Protocol Dextrose (Glutose 15) 0 gm PO ONCE PRN; Protocol PRN Reason: Hypoglycemia Protocol Enoxaparin Sodium (Lovenox) 40 mg SC DAILY [facility] Last Admin: 03/22/18 11:44 Dose: 40 mg Furosemide (Lasix) 20 mg IVP BID [facility] Last Admin: 03/22/18 17:11 Dose: Not Given Gabapentin (Neurontin) 300 mg PO DAILY [facility] Last Admin: 03/22/18 11:44 Dose: 300 mg Glucagon (Glucagen Diagnostic Kit) 0 mg IM STAT PRN; Protocol PRN Reason: Hypoglycemia Protocol Dextrose (Dextrose 5% In Water 1000 Ml) 1,000 mls @ 0 mls/hr IV .Q0M PRN; Protocol PRN Reason: Hypoglycemia Protocol Influenza Virus Vaccine (Flucelvax Quad [id number] Syr) 60 mcg IM .ONCE ONE Stop: 03/23/18 10:01 Insulin Aspart (Novolog) 0 unit SC [facility]; Protocol Last Admin: 03/23/18 08:06 Dose: 6 units Losartan Potassium (Cozaar) 100 mg PO DAILY [facility] Last Admin: 03/22/18 11:44 Dose: 100 mg Metformin HCl (Glucophage) 850 mg PO BID [facility] Last Admin: 03/22/18 17:11 Dose: Not Given Metoprolol Tartrate (Lopressor) 12.5 mg PO BID [facility] Last Admin: 03/22/18 17:12 Dose: Not Given Pneumococcal Polyvalent Vaccine (Pneumovax 23 Vaccine) 0.5 ml IM .ONCE ONE Stop: 03/24/18 10:01 Potassium Chloride (K-Dur 20 Meq Er Tab) 20 meq PO DAILY [facility] Rosuvastatin Calcium (Crestor) 10 mg PO HS [facility] Last Admin: 03/22/18 21:17 Dose: 10 mg - Labs Labs: 03/23/18 07:43 03/23/18 07:43 PT 11.8 SECONDS (9.7-12.2) 03/21/18 17:12 INR 1.1 03/21/18 17:12 APTT 27 SECONDS (21-34) 03/21/18 17:12 - Constitutional Appears: No Acute Distress - Head Exam Head Exam: ATRAUMATIC, NORMAL INSPECTION - Eye Exam Eye Exam: EOMI, Normal appearance - ENT Exam ENT Exam: Mucous Membranes Moist - Respiratory Exam Respiratory Exam: Clear to Ausculation Bilateral, NORMAL BREATHING PATTERN - Cardiovascular Exam Cardiovascular Exam: REGULAR RHYTHM, +S1, +S2 - GI/Abdominal Exam GI & Abdominal Exam: Soft, Normal Bowel Sounds. absent: Tenderness - Extremities Exam Extremities Exam: Pedal Edema - Neurological Exam Neurological Exam: Alert, Awake, Oriented x3 - Psychiatric Exam Psychiatric exam: Normal Affect - Skin Skin Exam: Normal Color Additional comments: right groin dressing - dressing was removed - mild bruising - c/d/i Assessment and Plan - Assessment and Plan (Free Text) Assessment: 67 year old female with past medical history of Diabetes, HTN and breast cancer remission presented to the ER for shortness of breath. Shortness of Breath secondary to Acute on Chronic CHF - Chest Xray: Prominent cardiac silhouette. Borderline pulmonary vascular congestion. No acute infiltrates bilaterally. - proBNP 3,320 - Trop Negative x3 - Total Cholesterol 118; LDL 78; HDL 48; TSH 4.11 - ECHO (03/22/18): EF 25-30%; left ventricle is borderline dilated. Left ventricle systolic function is severely impaired. Trace aortic regurgitation; mitral regurgitation is mild to moderate. There is mild pulmonary hypertension. - s/p Cardiac Cath 03/22/18: * L Main: Patent * LAD: Mid 95% stenosis * L Cx: Patent * High OM: Proximal 90% * RCA: Dominant and patent * EF: 20% - Medications: * Plavix 75mg po daily * Lasix 20mg IV daily * Cozaar 100mg po daily * Metoprolol Tartrate 12.5mg po bid * KDur 20meq po daily * Crestor 10mg HS - Patient will need Life Vest prior to discharge Patient to be transferred to [facility] 03/24/18 for Impella assisted High risk PCI Case discussed with Dr. Yovanny Turk PGY-2 <Edwin Hairston - Last Filed: 03/23/18 22:49> Objective - Vital Signs/Intake and Output Vital Signs (last 24 hours): Temp Pulse Resp BP Pulse Ox 98.0 F 95 H 20 135/88 97 03/23/18 16:00 03/23/18 16:00 03/23/18 16:00 03/23/18 17:53 03/23/18 16:00 Intake and Output: 03/23/18 03/24/18 18:59 06:59 Intake Total 400 Balance 400 - Medications Medications: Current Medications Aspirin (Ecotrin) 81 mg PO DAILY [facility] Last Admin: 03/23/18 09:44 Dose: 81 mg Clopidogrel Bisulfate (Plavix) 75 mg PO DAILY [facility] Last Admin: 03/23/18 09:44 Dose: 75 mg Dextrose (Dextrose 50% Inj) 0 ml IV STAT PRN; Protocol PRN Reason: Hypoglycemia Protocol Dextrose (Glutose 15) 0 gm PO ONCE PRN; Protocol PRN Reason: Hypoglycemia Protocol Enoxaparin Sodium (Lovenox) 40 mg SC DAILY [facility] Last Admin: 03/23/18 09:44 Dose: 40 mg Furosemide (Lasix) 20 mg IVP BID [facility] Last Admin: 03/23/18 17:53 Dose: 20 mg Gabapentin (Neurontin) 300 mg PO DAILY [facility] Last Admin: 03/23/18 09:44 Dose: 300 mg Glucagon (Glucagen Diagnostic Kit) 0 mg IM STAT PRN; Protocol PRN Reason: Hypoglycemia Protocol Dextrose (Dextrose 5% In Water 1000 Ml) 1,000 mls @ 0 mls/hr IV .Q0M PRN; Protocol PRN Reason: Hypoglycemia Protocol Insulin Aspart (Novolog) 0 unit SC [facility]; Protocol Last Admin: 03/23/18 21:29 Dose: Not Given Losartan Potassium (Cozaar) 100 mg PO DAILY [facility] Last Admin: 03/23/18 09:44 Dose: 100 mg Metformin HCl (Glucophage) 850 mg PO BID [facility] Last Admin: 03/23/18 17:52 Dose: 850 mg Metoprolol Tartrate (Lopressor) 12.5 mg PO BID [facility] Last Admin: 03/23/18 17:52 Dose: 12.5 mg Pneumococcal Polyvalent Vaccine (Pneumovax 23 Vaccine) 0.5 ml IM .ONCE ONE Stop: 03/24/18 10:01 Potassium Chloride (K-Dur 20 Meq Er Tab) 20 meq PO DAILY [facility] Last Admin: 03/23/18 09:44 Dose: 20 meq Rosuvastatin Calcium (Crestor) 10 mg PO HS [facility] Last Admin: 03/23/18 21:36 Dose: 10 mg - Labs Labs: 03/23/18 07:43 03/23/18 07:43 PT 11.8 SECONDS (9.7-12.2) 03/21/18 17:12 INR 1.1 03/21/18 17:12 APTT 27 SECONDS (21-34) 03/21/18 17:12 Assessment and Plan - Assessment and Plan (Free Text) Assessment: Patient seen and evaluated personally by me. Plan of care d/w the medical transcription editor and as documented
[2018-03-23] MEDS: Enoxaparin 40 mg Syringe SC SCH (09:44)
[2018-03-23] MEDS ORDERED: Influenza Vaccine 60 mcg/0.5 mL SYR (4YR UP) IM ONE (10:00)
--- NOTE | 2018-03-23 11:46 | CARD ---
APPROVED REPORT Date of service: 03/22/2018 EKG Measurement Heart [id number] <Conclusion> Normal sinus rhythm ST & T wave abnormality, consider inferior ischemia Prolonged QT Abnormal ECG
--- NOTE | 2018-03-23 17:06 | CP.PCM.PN ---
Subjective - Date & Time of Evaluation Date of Evaluation: 03/23/18 Time of Evaluation: 13:00 - Subjective Subjective: Patient was seen and examined at bedside this morning. She had a cardiac cath performed yesterday which went well. She is resting comfortably and in no acute distress. She states she is feeling better compared to yesterday. she slept well overnight. She denies fevers, chills, chest pain, shortness of breath, hemoptysis, n/v. Exam: General: no acute distres, AAOx3 Heart: RRR, no mumurs rubs or gallops Lungs: CTA b/l, no wheezing rales or rhonchi heard extremities: 2+ b/L pitting edema A&P 1. Shortness of Breath sec to CHF - CXR 03/21/18: prominent cardiac silhouette. borderline pulmonary vascular congestion, no acute infiltrates bilaterally - Continue Lasixs, fluid restrictions -Patient is afebrile at 97.9 F with a WBC count of 8.3 - O2 sat is 98% on room air - S/P Cardiac cath [place] [facility] [place] Impala Objective - Vital Signs/Intake and Output Vital Signs (last 24 hours): Temp Pulse Resp BP Pulse Ox 98.0 F 95 H 20 129/78 97 03/23/18 16:00 03/23/18 16:00 03/23/18 16:00 03/23/18 16:00 03/23/18 16:00 Intake and Output: 03/23/18 03/23/18 06:59 18:59 Intake Total 400 Balance 400 - Medications Medications: Current Medications Aspirin (Ecotrin) 81 mg PO DAILY [facility] Last Admin: 03/23/18 09:44 Dose: 81 mg Clopidogrel Bisulfate (Plavix) 75 mg PO DAILY [facility] Last Admin: 03/23/18 09:44 Dose: 75 mg Dextrose (Dextrose 50% Inj) 0 ml IV STAT PRN; Protocol PRN Reason: Hypoglycemia Protocol Dextrose (Glutose 15) 0 gm PO ONCE PRN; Protocol PRN Reason: Hypoglycemia Protocol Enoxaparin Sodium (Lovenox) 40 mg SC DAILY [facility] Last Admin: 03/23/18 09:44 Dose: 40 mg Furosemide (Lasix) 20 mg IVP BID [facility] Last Admin: 03/23/18 09:43 Dose: 20 mg Gabapentin (Neurontin) 300 mg PO DAILY [facility] Last Admin: 03/23/18 09:44 Dose: 300 mg Glucagon (Glucagen Diagnostic Kit) 0 mg IM STAT PRN; Protocol PRN Reason: Hypoglycemia Protocol Dextrose (Dextrose 5% In Water 1000 Ml) 1,000 mls @ 0 mls/hr IV .Q0M PRN; Protocol PRN Reason: Hypoglycemia Protocol Insulin Aspart (Novolog) 0 unit SC [facility]S [facility]; Protocol Last Admin: 03/23/18 11:47 Dose: 12 units Losartan Potassium (Cozaar) 100 mg PO DAILY [facility] Last Admin: 03/23/18 09:44 Dose: 100 mg Metformin HCl (Glucophage) 850 mg PO BID [facility] Last Admin: 03/23/18 09:44 Dose: 850 mg Metoprolol Tartrate (Lopressor) 12.5 mg PO BID [facility] Last Admin: 03/23/18 09:44 Dose: 12.5 mg Pneumococcal Polyvalent Vaccine (Pneumovax 23 Vaccine) 0.5 ml IM .ONCE ONE Stop: 03/24/18 10:01 Potassium Chloride (K-Dur 20 Meq Er Tab) 20 meq PO DAILY [facility] Last Admin: 03/23/18 09:44 Dose: 20 meq Rosuvastatin Calcium (Crestor) 10 mg PO HS [facility] Last Admin: 03/22/18 21:17 Dose: 10 mg - Labs Labs: 03/23/18 07:43 03/23/18 07:43 PT 11.8 SECONDS (9.7-12.2) 03/21/18 17:12 INR 1.1 03/21/18 17:12 APTT 27 SECONDS (21-34) 03/21/18 17:12
[2018-03-24 07:30] VITALS: BP 145/80; PULSE 96; TEMP 98; O2SAT 98
[2018-03-24] MEDS ORDERED: Pneumococcal 23-Valent Vaccine IM ONE (10:00)
--- NOTE | 2018-03-24 22:45 | CP.PCM.DIS ---
Provider - Provider Date of Admission: 03/23/18 10:35 Attending physician: Fantasma Holt MD Consults: 03/21/18 20:06 Cardiology Consult Routine Comment: acs Consulting Provider: Edwin Hairston Consulting Physician: Edwin Hairston Reason for Consult: acs 03/22/18 09:53 Pulmonology Consult Routine Comment: Consulting Provider: Chalo Mcdaniels Consulting Physician: Chalo Mcdaniels Reason for Consult: dyspnea Time Spent in preparation of Discharge (in minutes): 30 Hospital Course - Lab Results Lab Results: Most Recent Lab Values WBC 8.3 K/uL (4.8-10.8) 03/23/18 07:43 RBC 4.27 Mil/uL (3.80-5.20) 03/23/18 07:43 Hgb 12.4 g/dL (11.0-16.0) 03/23/18 07:43 Hct 37.5 % (34.0-47.0) 03/23/18 07:43 MCV 87.9 fL (81.0-99.0) 03/23/18 07:43 MCH 29.2 pg (27.0-31.0) 03/23/18 07:43 MCHC 33.2 g/dL (33.0-37.0) 03/23/18 07:43 RDW 14.2 % (11.5-14.5) 03/23/18 07:43 Plt Count 259 K/uL (130-400) 03/23/18 07:43 MPV 9.1 fL (7.2-11.7) 03/23/18 07:43 Neut % (Auto) 69.8 % (50.0-75.0) 03/21/18 17:12 Lymph % (Auto) 21.3 % (20.0-40.0) 03/21/18 17:12 Terrell % (Auto) 7.7 % (0.0-10.0) 03/21/18 17:12 Eos % (Auto) 0.8 % (0.0-4.0) 03/21/18 17:12 Baso % (Auto) 0.4 % (0.0-2.0) 03/21/18 17:12 Neut # (Auto) 5.3 K/uL (1.8-7.0) 03/21/18 17:12 Lymph # (Auto) 1.6 K/uL (1.0-4.3) 03/21/18 17:12 Terrell # (Auto) 0.6 K/uL (0.0-0.8) 03/21/18 17:12 Eos # (Auto) 0.1 K/uL (0.0-0.7) 03/21/18 17:12 Baso # (Auto) 0.0 K/uL (0.0-0.2) 03/21/18 17:12 PT 11.8 SECONDS (9.7-12.2) 03/21/18 17:12 INR 1.1 03/21/18 17:12 APTT 27 SECONDS (21-34) 03/21/18 17:12 Sodium 135 mmol/L (132-148) 03/23/18 07:43 Potassium 4.0 mmol/L (3.6-5.2) 03/23/18 07:43 Chloride 100 mmol/L (98-107) 03/23/18 07:43 Carbon Dioxide 25 mmol/L (22-30) 03/23/18 07:43 Anion Gap 15 (10-20) 03/23/18 07:43 BUN 24 mg/dL (7-17) H 03/23/18 07:43 Creatinine 0.7 mg/dL (0.7-1.2) 03/23/18 07:43 Est GFR ( Amer) > 60 03/23/18 07:43 Est GFR (Non-Af Amer) > 60 03/23/18 07:43 POC Glucose (mg/dL) 239 mg/dL (65-110) H 03/24/18 06:02 Random Glucose 358 mg/dL (65-105) H D 03/23/18 07:43 Calcium 9.0 mg/dl (8.6-10.4) 03/23/18 07:43 Total Bilirubin 1.1 mg/dL (0.2-1.3) 03/21/18 17:12 AST 28 U/L (14-36) 03/21/18 17:12 ALT 37 U/L (9-52) 03/21/18 17:12 Alkaline Phosphatase 56 U/L (38-126) 03/21/18 17:12 Total Creatine Kinase 45 U/L (30-135) 03/22/18 07:27 CK-MB (Mass) 0.75 ng/mL (0.0-3.38) 03/22/18 07:27 Troponin I < 0.0120 ng/mL (0.00-0.120) 03/22/18 07:27 NT-Pro-B Natriuret Pep 3320 pg/mL (0-900) H 03/21/18 17:12 Total Protein 7.2 g/dL (6.3-8.3) 03/21/18 17:12 Albumin 4.3 g/dL (3.5-5.0) 03/21/18 17:12 Globulin 2.9 gm/dL (2.2-3.9) 03/21/18 17:12 Albumin/Globulin Ratio 1.5 (1.0-2.1) 03/21/18 17:12 Triglycerides 118 mg/dL (0-149) 03/22/18 07:27 Cholesterol 137 mg/dL (0-199) 03/22/18 07:27 LDL Cholesterol Direct 78 mg/dL (0-129) 03/22/18 07:27 HDL Cholesterol 48 mg/dL (30-70) 03/22/18 07:27 TSH 3rd Generation 4.11 mIU/L (0.46-4.68) 03/22/18 07:27 Discharge Exam - Head Exam Head Exam: ATRAUMATIC, NORMAL INSPECTION Discharge Plan - Follow Up Plan Condition: STABLE Disposition: Trans to Other Acute Care Hosp
--- NOTE | 2018-03-25 08:55 | DS ---
DISCHARGE DIAGNOSES: 1. Coronary artery disease. 2. Acute on chronic systolic heart failure. 3. Hypertension. 4. Hyperlipidemia. 5. Diabetes. HISTORY OF PRESENT ILLNESS: This is a 67-year-old [place] female with history of diabetes, hypertension, hyperlipidemia who came in because of dyspnea on exertion. She was found to have acute systolic heart failure with low LV ejection fraction of 20%. She underwent cardiac catheterization with multivessel disease, and she has been transferred to [facility] for angioplasty. The patient is stable upon transfer. She is afebrile. PHYSICAL EXAMINATION: VITAL SIGNS: Blood pressure 145/80, pulse 93, respiratory rate 20, temperature 98. LUNGS: Bilateral basal crepitation. CARDIOVASCULAR SYSTEM: S1, S2 regular. ABDOMEN: Soft, nontender. Bowel sounds are positive. ASSESSMENT: 1. Coronary artery disease. 2. Congestive heart failure. 3. Diabetes. 4. Hypertension. PLAN: Transfer the patient to [facility]. Fantasma Holt MD
== END 2018-03-24 06:45 | disposition short-term general hospital (02) | DRG 287 ==
LOC: C.ER 16:23 → UNDOADMOB 17:53 → C.9E 17:53 → C.6T 20:05 → OBSVTOIN 03-23 10:35
PROVIDERS: ADMIT Internal Medicine; ATTEND Internal Medicine
PROC: 4A023N7 Measurement of Cardiac Sampling and Pressure, Left Heart, Percutaneous Approach (ICD-10-PCS; principal; 2018-03-23)
PROC: B2111ZZ Fluoroscopy of Multiple Coronary Arteries using Low Osmolar Contrast (ICD-10-PCS; 2018-03-23)
PROC: B2151ZZ Fluoroscopy of Left Heart using Low Osmolar Contrast (ICD-10-PCS; 2018-03-23)
DX: I11.0 Hypertensive heart disease with heart failure (principal); I50.43 Acute on chronic combined systolic (congestive) and diastolic (congestive) heart failure; E11.9 Type 2 diabetes mellitus without complications; E66.9 Obesity, unspecified; E78.00 Pure hypercholesterolemia, unspecified; I25.10 Atherosclerotic heart disease of native coronary artery without angina pectoris; I27.20 Pulmonary hypertension, unspecified; I42.0 Dilated cardiomyopathy; M19.90 Unspecified osteoarthritis, unspecified site; Z85.3 Personal history of malignant neoplasm of breast; Z96.652 Presence of left artificial knee joint

== ENCOUNTER 2018-07-23 10:11 | Outpatient (CLI) | payer BC | END 2018-07-23 10:12 | disposition home or self-care (01) | LOC: C.CARD 10:11 | DX: R06.02 Shortness of breath (principal); I50.22 Chronic systolic (congestive) heart failure ==